=== PATIENT | female | born 1940 | race Caucasian/White ===

== ENCOUNTER → 2016-10-11 | Outpatient (CLI) | payer MEDICARE, BC ==
[~2016-10-11] MED LIST: ANASTROZOLE1 MG PO; CALCIUM 500 +1 EAC2 PO; CALTRATE GUMMY1 EACH PO; CELECOXIB200 MG PO; GABAPENTIN300 M2 PO; LORTAB 5/500 TA1 TA1 PO; MICARDIS HCT 41 EACH PO; OMEPRAZOLE40 M1 PO; SYNTHROID125 PO; TENORMIN50 MG PO; ULTRAM PO; VITAMIN D; VITAMIN D400 UNI1 PO; ZANAFLEX4 M1 PO; ZOFRAN PO; ZOLPIDEM TARTRAT5 M1 PO
[2016-10-11 11:24] LABS: THYROID STIMULATING HORMONE 2.67 uIU/ml (0.34-5.60)
[2016-10-11 11:31] LABS: FREE THYROXIN (T4) 0.95 ng/dL (0.58-1.64)
== END | disposition home or self-care (01) ==
LOC: CLAB 09:29
DX: E03.9 Hypothyroidism, unspecified (principal)
CPT/HCPCS: 36415; 84439; 84443; 84480

== ENCOUNTER → 2016-12-20 | Outpatient (CLI) | payer MEDICARE, BC ==
--- NOTE | ~2016-12-20 | MR113 ---
[facility] A Service of [facility] & [facility] RADIOLOGY TEXT RESULTS PATIENT: MATT MARTINEZ LOCATION: [facility] : 38 UNIT #: [id number] AGE: [address]: Tigre Badillo MD SEX: F ORDER DR: [id number] [facility] [address] [place], [place] [address] [id number] O MR#: [id number] Acc #: [id number] NAME: MATT MARTINEZ : 1940 SEX: F STUDY DATE/TIME: 12/20/2016 6:54 UNIT: [facility] ROOM: STUDY DESCRIPTION: MR Lumbar Wo Contrast Attending Physician: Tigre Badillo M.D. Referring Physician: iTgre Badillo M.D. Ordering Physician: Tigre Badlilo M.D. Primary Care Physician: Teddy Fischer Jr., M.D. MRI CENTER REPORT This report is preliminary unless electronic signature is present. EXAM MRI of the lumbar spine without contrast dated 12/20/2016. COMPARISON Plain films lumbar spine dated 05/27/2016. HISTORY Low back pain for 1 year. Sciatic nerve pain for 1 month. It radiates down the right leg to the foot. FINDINGS Multisequence, multiplanar imaging of the lumbar spine was obtained without contrast, as per the protocol. There is mild levoscoliosis of the lumbar spine with the apex at L1-2. Wayne angle measured from the inferior endplate of T11 to the inferior endplate of L4 is about 9-10 degrees. Disc osteophyte complex are noted throughout the lumbar spine. There is mild 3.5 mm retrolisthesis of L5 with respect to L4. Prominent posterior inferior osteophyte is noted at L1-2 causing minimal 2.5 mm retrolisthesis of L1 with respect to L2. Conus terminates at T12-L1. Signal of conus and cauda equina are within normal limits. Pre- and paravertebral soft tissues do not demonstrate any significant abnormality. Increased T2-signal lesions are noted in the left kidney, predominantly in the hilum suggestive of parapelvic cysts. L1-2: Disc-osteophyte complex with mild bilateral neural foraminal narrowing, worse on the left. Mild bilateral facet changes are noted with mild canal stenosis. Suspicious right to left foraminal broad-based protrusion is suspected. L2-3: Disc-osteophyte complex which is asymmetrically prominent in bilateral foraminal to extraforaminal regions, particularly on the left. Moderate left and mild to moderate right neural foraminal narrowing is seen with mild bilateral facet changes, worse on the left. Borderline STS. [facility] A Service of [facility] RADIOLOGY TEXT RESULTS PATIENT: MATT MARTINEZ LOCATION: [facility] : 38 UNIT #: [id number] AGE: [address]: Tigre Badillo MD SEX: F ORDER DR: size to mild canal stenosis is noted with mild left lateral recess stenosis. There appears to be central to right foraminal superimposed spur/disc herniation noted at the level of L2 (series 6, image 32). Given that it is at the level of mid L2, it could represent a small, sequestered fragment, but it is unclear. L3-4: Disc-osteophyte complex which is asymmetrically prominent in the left foraminal to extraforaminal region. It extends towards the left subarticular region. Mild bilateral facet changes are noted with mild to moderate bilateral ligamentum flavum thickening. There is borderline size to mild canal stenosis with mild inferior right and mild to moderate left neural foraminal narrowing. L4-5: Disc-osteophyte complex which is asymmetrically prominent in bilateral foraminal to extraforaminal regions. Severe bilateral facet hypertrophic changes are noted with bilateral ligamentum flavum thickening, severe canal stenosis, mild to moderate left and mild right neural foraminal narrowing. Relatively worst level. L5-S1: Disc-osteophyte complex with suspicious superimposed central protrusion. Mild inferior bilateral neural foraminal narrowing is seen with mild right and severe left facet hypertrophic change. IMPRESSION 1. Degenerative changes are noted at multiple levels, relatively worse at L4-5 as described above, with severe canal stenosis. Bilateral facet hypertrophic changes and bilateral neural foraminal narrowing are also seen. 2. Mild levoscoliosis of the lumbar spine is seen with the apex at L1-2. The measured Wayne angle from the inferior endplate of T11 to the inferior endplate of L4 is about 9-10 degrees. 3. Refer above to the detailed report. Dictated by... Drew Mackenzie M.D. THIS IS AN ELECTRONICALLY VERIFIED REPORT Drew Mackenzie M.D. at 12/21/2016 9:31 PM CPR/psc TD: 12/21/2016 02:09 JOB #: [id number] MRI CENTER REPORT Page 1 of 1 COPY
== END | disposition home or self-care (01) ==
LOC: CMRI 06:19
DX: M54.5 Low back pain (principal); M48.06 Spinal stenosis, lumbar region; M25.78 Osteophyte, vertebrae
CPT/HCPCS: 72148

== ENCOUNTER → 2016-12-27 | Day surgery (SDC) | payer MEDICARE, BC ==
--- NOTE | ~2016-12-27 | OR ---
Unit #: [id number] #: [id number] Patient: MATT MARTINEZ [id number] [address] [place], [place] [address] [id number] O MR#: [id number] NAME: MATT MARTINEZ ROOM: Date of Procedure: 12/27/2016 Admission Date: 12/27/2016 Surgeon: Murali Concepcion M.D. : 1940 Attending Physician: Jeff Concepcion Primary Care Physician: Teddy Fischer Jr., M.D. SURGERY CENTER OPERATIVE NOTE JOB NOTE: CC: DR. POZO PROCEDURE PERFORMED Lumbar epidural steroid injection under x-ray guided needle placement with provider administered conscious sedation. PREOPERATIVE DIAGNOSES 1. Acute lumbar radiculitis. 2. Spinal stenosis. 3. Herniated disk, multiple levels. 4. Degenerative disk disease, multiple levels. 5. Degenerative joint disease, multiple levels. INDICATIONS FOR PROCEDURE The patient presents today with longstanding history of crescendo pattern increasing radicular pain right greater than left, which has failed to respond to conservative measures which include medications. After discussing risks and benefits of proceeding today with a lumbar approach epidural steroid injection, the patient agreed this would be the appropriate course of action. We also discussed to return on 01/05/2017 for a potential followup. DESCRIPTION OF PROCEDURE Following these discussions, the patient was taken to the operating room, where she was prepped and draped in a sterile manner. Standard monitors were applied. She was sedated with 2 mg of IV Versed and after unsuccessful attempts at the L4-L5 level, the patient was accessed at the L5-S1 level using loss of resistance technique and x-ray guidance. Needle placement confirmed with injection of 2 mL of Omnipaque. There was good superior and inferior flow at this L5-S1 needle placement. Following successful needle placement confirmation which required an x-ray time of 10 seconds, the patient received an injectate containing 2 mL normal saline, 2 mL of 0.25% bupivacaine, and 80 mg of methylprednisolone. She tolerated this procedure well. She was discharged home with followup instructions, which include return to this clinic on 01/05/2017, at that point, we will most likely do an L3-L4 initial injection and decided where to proceed depending upon dye flow at the L3-L4 needle placement. Dictated by... Shannan Washburn/saba Unit #: [id number] #: [id number] Patient: MATT MARTINEZ TD: 12/27/2016 23:04 JOB #: [id number] SURGERY CENTER OPERATIVE NOTE Page 1 of 1 X Jeff Concepcion MD PROCEDURE OPERATIVE NOTE
== END | disposition home or self-care (01) ==
LOC: CCSC 14:06
DX: M51.16 Intervertebral disc disorders with radiculopathy, lumbar region (principal); M47.26 Other spondylosis with radiculopathy, lumbar region; M48.06 Spinal stenosis, lumbar region; E89.0 Postprocedural hypothyroidism; K21.9 Gastro-esophageal reflux disease without esophagitis; Z85.3 Personal history of malignant neoplasm of breast; Z88.6 Allergy status to analgesic agent; Z91.040 Latex allergy status; Z79.1 Long term (current) use of non-steroidal anti-inflammatories (NSAID); Z79.899 Other long term (current) drug therapy; Z90.710 Acquired absence of both cervix and uterus
CPT/HCPCS: J1040; J2250

== ENCOUNTER → 2017-01-05 | Day surgery (SDC) | payer MEDICARE, BC ==
--- NOTE | ~2017-01-05 | OR ---
Unit #: [id number] #: [id number] Patient: MATT MARTINEZ [id number] [address] [place], [place] [address] [id number] O MR#: [id number] NAME: MATT MARTINEZ ROOM: Date of Procedure: 01/05/2017 Admission Date: 01/05/2017 Surgeon: Murali Concepcion M.D. : 1940 Attending Physician: Jeff Concepcion Primary Care Physician: Teddy Mane Jr., M.D. SURGERY CENTER OPERATIVE NOTE JOB NOTE: CC: DR. MANE PROCEDURE PERFORMED Lumbar epidural steroid injection under x-ray guided needle placement with provider administered conscious sedation. PREOPERATIVE DIAGNOSES 1. Acute lumbar radiculitis. 2. Spinal stenosis, lumbosacral spine. 3. Degenerative joint disease, lumbosacral spine. 4. Degenerative disk disease, lumbosacral spine. 5. Facet arthrosis, lumbosacral spine. 6. Facet arthralgia, lumbosacral spine. INDICATIONS FOR PROCEDURE The patient presents today status post one previous lumbar approach epidural steroid injection for an acute radiculitis, which had failed to respond to conservative treatment. She states she got some results with improvement in her radicular pain; however, this appeared to unmask pain more consistent with facet arthralgia once her radicular symptoms seemed to rachel somewhat. She did get initially good results; however, over the course of the interval time between her initial visit and today, her pain has returned to the point that she is desiring a second epidural steroid injection. After discussing risks and benefits of proceeding today with second lumbar approach epidural steroid injection using a dual access technique as well as return to this clinic on 04/13/2017 for long-term followup, the patient agreed this would be appropriate course of action. We also discussed referral to P for potential facet joint injections with RFA to which the patient was also agreeable. DESCRIPTION OF PROCEDURE Following these discussions Ms. Leal was taken to the operating room, where she was prepped and draped in sterile manner. Standard monitors were applied. She was sedated with 2 mg of IV Versed and lumbar epidural space accessed at the L2-L3 and L5-S1 levels using loss of resistance technique and x-ray guidance. Needle placement was confirmed at each level with the injection of 2 mL of Omnipaque. There was good superior and inferior flow at each injected level. Following successful needle placement confirmation, the patient received an injectate containing 4 mL normal saline and 40 mg of methylprednisolone at the L2-L3 and the L5-S1 levels for a total injectate volume of 8 mL normal saline and 80 mg of methylprednisolone. She tolerated this procedure well. She was discharged home with followup instructions, which include return dates as Unit #: [id number] #: [id number] Patient: MATT MARTINEZ described above. Total x-ray time for today's procedure was 18 seconds. Dictated by... Shannan Washburn/saba TD: 01/05/2017 19:15 JOB #: [id number] SURGERY CENTER OPERATIVE NOTE Page 1 of 1 X Jeff Concepcion MD X PROCEDURE OPERATIVE NOTE
== END | disposition home or self-care (01) ==
LOC: CCSC 09:16
DX: M51.17 Intervertebral disc disorders with radiculopathy, lumbosacral region (principal); M47.27 Other spondylosis with radiculopathy, lumbosacral region; M48.07 Spinal stenosis, lumbosacral region; E89.0 Postprocedural hypothyroidism; K21.9 Gastro-esophageal reflux disease without esophagitis; Z85.3 Personal history of malignant neoplasm of breast; Z88.6 Allergy status to analgesic agent; Z91.040 Latex allergy status; Z79.2 Long term (current) use of antibiotics; Z79.899 Other long term (current) drug therapy; Z90.710 Acquired absence of both cervix and uterus
CPT/HCPCS: J1040; J2250

== ENCOUNTER → 2017-01-13 | Outpatient (CLI) | payer MEDICARE, BC ==
--- NOTE | ~2017-01-13 | US80 ---
[facility] A Service of [facility] & [facility] RADIOLOGY TEXT RESULTS PATIENT: MATT MARTINEZ LOCATION: [facility] : 38 UNIT #: [id number] AGE: [address]: Tigre Badillo MD SEX: F ORDER DR: [id number] [facility] [address] [place], [place] [address] [id number] O MR#: [id number] Acc #: [id number] NAME: MATT MARTINEZ : 1940 SEX: F STUDY DATE/TIME: 01/13/2017 9:08 UNIT: [facility] ROOM: STUDY DESCRIPTION: US Kidney Unilateral Complete Attending Physician: Tigre Badillo M.D. Ordering Physician: Tigre Badillo M.D. Primary Care Physician: Tigre Badillo M.D. MEDICAL IMAGING REPORT This report is preliminary unless electronic signature is present EXAM Left renal ultrasound HISTORY Left renal cyst. Back pain for 3 weeks. FINDINGS Ultrasound examination of the left kidney demonstrates mild left hydronephrosis and probable small parapelvic renal cysts. No solid renal mass is identified. No perinephric fluid collection. No focal atrophy. IMPRESSION Mild left hydronephrosis and small parapelvic renal cysts. No solid renal mass is identified. Dictated by... David Samuels M.D. THIS IS AN ELECTRONICALLY VERIFIED REPORT David Samuels M.D. at 01/14/2017 11:19 PM DFL/rnr TD: 01/13/2017 19:19 JOB #: [id number] MEDICAL IMAGING REPORT Page 1 of 1 COPY
== END | disposition home or self-care (01) ==
LOC: CWCC 01-07 10:30
DX: N28.1 Cyst of kidney, acquired (principal); N13.30 Unspecified hydronephrosis
CPT/HCPCS: 76770

== ENCOUNTER → 2017-02-08 | Outpatient (CLI) | payer MEDICARE, BC ==
--- NOTE | ~2017-02-08 | NM29 ---
[facility] A Service of [facility] & [facility] RADIOLOGY TEXT RESULTS PATIENT: MATT MARTINEZ LOCATION: [facility] : 38 UNIT #: [id number] AGE: [address]: Leno Haines MD SEX: F ORDER DR: [id number] [facility] [address] [place], [place] [address] [id number] O MR#: [id number] Acc #: [id number] NAME: MATT MARTINEZ : 1940 SEX: F STUDY DATE/TIME: 02/08/2017 8:25 UNIT: [facility] ROOM: STUDY DESCRIPTION: NM Kidney Vasc Flow Sng W Attending Physician: Leno Haines M.D. Referring Physician: Leno Haines M.D. Ordering Physician: Leno Haines M.D. Primary Care Physician: Teddy Fischer Jr., M.D. MEDICAL IMAGING REPORT This report is preliminary unless electronic signature is present EXAM Renal nuclear medicine flow and function study. HISTORY Hydronephrosis. Evaluate renal function. UTI 4 weeks ago. Previous left breast cancer and left renal cyst. Mild left hydronephrosis seen on recent ultrasound 01/13/2017. FINDINGS The patient was given 4.48 mCi of technetium-99m MAG3. Posterior images were obtained after 21 minutes and renal activity curves were generated. Peak activity occurred in each kidney by 3 minutes and there is normal clearance. 40 mg of Lasix was administered at 3-4 minutes. The right kidney has about 38.5% of the activity and the left kidney has 61.5% activity. IMPRESSION There is a discrepancy in the amount of activity in each kidney with the left kidney having 61.5% and the right kidney having 38.5%. Otherwise, the study is normal with peak activity within 3 minutes and a T1/2 of 5 minutes. Dictated by... Angelo Herron M.D. THIS IS AN ELECTRONICALLY VERIFIED REPORT Angelo Herron M.D. at 02/09/2017 1:08 PM RICH/shaggy TD: 02/09/2017 12:33 [facility]. [facility] A Service of [facility] & [facility] RADIOLOGY TEXT RESULTS PATIENT: MATT [facility]ARTINEZ [id number] UNIT #: [id number] AGE: [address]: Leno Haines MD SEX: F ORDER DR: JOB #: [id number] MEDICAL IMAGING REPORT Page 1 of 1 COPY
== END | disposition home or self-care (01) ==
LOC: CNUC 07:29
DX: N13.30 Unspecified hydronephrosis (principal); R94.4 Abnormal results of kidney function studies
CPT/HCPCS: 78708; A9562; J1940